=== PATIENT | female | born 1975 | race African-American/Black ===

== ENCOUNTER 2020-10-10 11:00 | Emergency (ER) | payer MEDICAID ==
[~2020-10-10] VITALS: Ht 167.6 cm; Wt 83.0 kg
[2020-10-10 11:03] VITALS: BP 155/109
[2020-10-10] MEDS ORDERED: ALBU18HF2 IH (11:09)
[2020-10-10] MEDS ORDERED: QUET50TA PO (11:09)
== END 2020-10-10 12:08 | disposition left against medical advice (07) ==
LOC: ER 11:09
DX: F23 Brief psychotic disorder (principal); Z53.21 Procedure and treatment not carried out due to patient leaving prior to being seen by health care provider
CPT/HCPCS: 93005

== ENCOUNTER 2020-10-10 13:31 | Emergency (ER) | payer MEDICAID ==
[~2020-10-10] VITALS: Ht 162.6 cm; Wt 82.0 kg
[~2020-10-10 13:31] MED LIST: ALBU18HF2 IH; QUET50TA PO
[2020-10-10 15:27] LABS: CHLORIDE 107 mEq/L (98-107)
[2020-10-10 15:28] LABS: BASOPHILS % 0.5 % (0.0-2.0); EOSINOPHILS % 2.9 % (0.0-5.0); HEMATOCRIT. 39.3 % (36.0-48.0); MEAN CORPUSCULAR HEMOGLOBIN 26.2 pg (28.0-32.0); MEAN CORPUSCULAR VOLUME 79.5 fL (81.0-99.0); MEAN PLATELET VOLUME 7.9 fl (7.4-10.4); NEUTROPHILS % 64.6 % (40.0-76.0); PLATELET 360 x1000/uL (130-400); RED BLOOD CELL COUNT 4.95 mill/uL (4.2-5.4); RED CELL DISTRIBUTION WIDTH 16.9 % (11.6-14.6)
[2020-10-10 15:32] LABS: ETHANOL BLOOD < 10 mg/dL
[2020-10-10 16:27] LABS: CLARITY URINE CLOUDY (CLEAR); COLOR URINE DARK YELLOW (YELLOW); KETONES URINE TRACE (NEGATIVE); LEUKOCYTE ESTERASE URINE NEGATIVE (NEGATIVE); NITRITE URINE NEGATIVE (NEGATIVE); OCCULT BLOOD URINE NEGATIVE (NEGATIVE); PH URINE 5.5 (4.5-8.0); PROTEIN URINE TRACE (NEGATIVE); SPECIFIC GRAVITY URINE 1.033 (1.005-1.030)
[2020-10-10 16:39] LABS: *BARBITURATES SCREEN URINE NEGATIVE (NEGATIVE); CANNABINOID URINE SCREEN NEGATIVE (NEGATIVE)
[2020-10-10 16:40] LABS: *BENZODIAZEPINES SCREEN URINE NEGATIVE (NEGATIVE); OPIATES URINE SCREEN NEGATIVE (NEGATIVE); PHENCYCLIDINE URINE SCREEN NEGATIVE (NEGATIVE)
[2020-10-10 16:41] LABS: METHADONE URINE SCREEN NEGATIVE (NEGATIVE)
[2020-10-10 16:43] LABS: *AMPHETAMINES SCREEN URINE PRESUMTIVE POSITIVE (NEGATIVE); *COCAINE SCREEN URINE PRESUMTIVE POSITIVE (NEGATIVE)
[2020-10-12 11:58] VITALS: BP 117/73
== END 2020-10-12 12:00 | disposition home or self-care (01) ==
LOC: ER 13:31
DX: R41.0 Disorientation, unspecified (principal); J45.909 Unspecified asthma, uncomplicated; F20.9 Schizophrenia, unspecified; Z98.890 Other specified postprocedural states
CPT/HCPCS: 36415; 80053; 80305; 80320; 81003; 81025; 85025; 85379; 99285; G0480